=== PATIENT | female | born 1975 | race Asian ===

== ENCOUNTER → 2023-11-07 06:31 | Day surgery (SDC) | payer OTHER, SELFPAY | LOC: GI 06:31 | PROVIDERS: ATTENDING PHYSICIAN Internal Medicine Gastroenterology | DX: Z12.11 Encounter for screening for malignant neoplasm of colon (principal); K64.8 Other hemorrhoids; D12.5 Benign neoplasm of sigmoid colon; R12 Heartburn; Z80.0 Family history of malignant neoplasm of digestive organs; K22.89 Other specified disease of esophagus; K29.50 Unspecified chronic gastritis without bleeding; K21.00 Gastro-esophageal reflux disease with esophagitis, without bleeding | CPT/HCPCS: 45385; 43239; 88305; 88342 ==